=== PATIENT | female | born 1965 | race African-American/Black ===

== ENCOUNTER 2020-04-23 13:58 | Inpatient (IN) ==
[2020-04-23 15:27] LABS: Basophils % 0.3 % (0.0-0.8); Eosinophils # 0.1 10*3/uL (0.0-0.87); Eosinophils % 0.5 % (0.00-10.9); Hematocrit 37.4 VOL% (35.7-47.0); Hemoglobin 11.5 GM/DL (12.0-16.0); Lymphocytes # 2.5 10*3/uL (1.4-4.0); Lymphocytes % 26.6 % (21.3-54.2); Mean Corpuscular HGB Conc 30.7 GM/DL (32-36); Mean Corpuscular Volume 76.5 FL (87-102); Mean Platelet Volume 11.1 FL (9.6-12.0); Neutrophils % 64.6 % (38.7-73.9); Platelet Count 299 T/CUMM (130-400); Red Blood Count 4.89 MC/CUMM (3.8-5.5); Red Cell Distribution Width 16.6 % (9.3-17.3); White Blood Count 9.6 T/CUMM (4-12)
[2020-04-23 15:59] LABS: Albumin 2.7 G/DL (3.4-5.0); Bilirubin,Total 0.9 MG/DL (0.2-1.0); Calcium 9.2 MG/DL (8.5-10.1); Ferritin 240.9 ng/ml (8-252); Osmolality,Calculated 265.7 MOS/KG (273-304); Total Protein 8.2 G/DL (6.4-8.3)
[2020-04-23] MEDS ORDERED: AZITHROMYCIN 250 MG TABLET PO STA (16:25)
[2020-04-23] MEDS ORDERED: cefTRIAXone 1,000 MG in SODIUM CHLORIDE 0.9% 100 ML IV STA (16:25)
[2020-04-23 16:29] LABS: Atypical Lymphocytes 1+; Eosinophils 2 % (0-10); Lymphocytes 28 % (20-55); Polychromasia Few; Reactive Lymphocytes Few; Segmented Neutrophils 64 % (50-85); Total Cells Counted 100
[2020-04-23 16:30] LABS: Anisocytosis Slight; Microcytosis Slight; Platelet Estimate Adequate
[2020-04-23] MEDS ORDERED: ONDANSETRON 4 MG/2 ML VIAL IV PRN (17:19)
[2020-04-23] MEDS ORDERED: ACETAMINOPHEN 325 MG TABLET PO PRN (17:19)
[2020-04-23] MEDS ORDERED: GLUCAGON 1 MG VIAL IM PRN ×2 (17:19)
[2020-04-23] MEDS ORDERED: DEXTROSE 50% 25 GM/50 ML VIAL IV PRN ×2 (17:19)
[2020-04-23] MEDS ORDERED: AMITRIPTYLINE 50 MG TABLET PO SCH (21:00)
[2020-04-23] MEDS: ENOXAPARIN 40 MG/0.4 ML SYRINGE SUBCUT SCH (21:08)
[2020-04-23] MEDS: SODIUM CHLORIDE 0.9% 1,000 ML IV SCH (23:15)
[2020-04-23] MEDS: DULoxetine 30 MG CAPSULE PO SCH (23:28)
[2020-04-23] MEDS: buPROPion XL 150 MG TABLET PO SCH (23:29)
[2020-04-23] MEDS: POLYETHYLENE GLYCOL POWDER 17 GM PACK PO SCH (23:29)
[2020-04-23] MEDS: MONTELUKAST 10 MG TABLET PO SCH (23:29)
[2020-04-23] MEDS: INSULIN LISPRO 100 UNIT/ML SUBCUT SCH (23:30)
[2020-04-23] MEDS: ZINC SULFATE 220 MG CAPSULE PO SCH (23:30)
[2020-04-23] MEDS: CETIRIZINE 10 MG TABLET PO SCH (23:30)
[2020-04-24 05:22] LABS: Basophils % 0.4 % (0.0-0.8); Eosinophils # 0.1 10*3/uL (0.0-0.87); Hematocrit 34.1 VOL% (35.7-47.0); Hemoglobin 10.4 GM/DL (12.0-16.0); Immature Granulocytes % 1.7 %; Immature Granulocytes Absolute 0.16 #; Lymphocytes # 3.3 10*3/uL (1.4-4.0); Lymphocytes % 35.3 % (21.3-54.2); Mean Corpuscular HGB Conc 30.5 GM/DL (32-36); Mean Platelet Volume 10.6 FL (9.6-12.0); Monocytes % 8.1 % (1.7-12.7); Neutrophils % 53.5 % (38.7-73.9); Platelet Count 279 T/CUMM (130-400); Red Blood Count 4.37 MC/CUMM (3.8-5.5); Red Cell Distribution Width 16.3 % (9.3-17.3); White Blood Count 9.4 T/CUMM (4-12)
[2020-04-24 05:49] LABS: Calcium 8.6 MG/DL (8.5-10.1); Hypochromasia 2+; Microcytosis 1+
[2020-04-24 05:50] LABS: Ovalocytes Slight; Platelet Estimate Normal; Tear Drop Cells Slight
[2020-04-24 05:52] LABS: Ferritin 236.1 ng/ml (8-252)
[2020-04-24] MEDS: INSULIN LISPRO 100 UNIT/ML SUBCUT SCH ×3 (07:37→17:50)
[2020-04-24] MEDS ORDERED: DEXTROSE 10% 250 ML BAG IV PRN (08:00)
[2020-04-24] MEDS: buPROPion XL 150 MG TABLET PO SCH ×2 (08:52→21:00)
[2020-04-24] MEDS: POLYETHYLENE GLYCOL POWDER 17 GM PACK PO SCH (08:52)
[2020-04-24] MEDS: DULoxetine 30 MG CAPSULE PO SCH ×2 (08:52→09:00)
[2020-04-24] MEDS: AZITHROMYCIN 250 MG TABLET PO SCH (08:52)
[2020-04-24] MEDS ORDERED: PANTOPRAZOLE 40 MG TABLET PO SCH (09:00)
[2020-04-24] MEDS ORDERED: ATORVASTATIN 40 MG TABLET PO SCH ×2 (09:00→21:00)
[2020-04-24] MEDS: cefTRIAXone 1,000 MG in SYRINGE 1 EACH IV SCH (10:20)
[2020-04-24] MEDS: SODIUM CHLORIDE 0.9% 1,000 ML IV SCH ×2 (10:24→18:21)
[2020-04-24] MEDS: CETIRIZINE 10 MG TABLET PO SCH (10:29)
[2020-04-24] MEDS: ENOXAPARIN 40 MG/0.4 ML SYRINGE SUBCUT SCH ×2 (12:08→13:01)
[2020-04-24] MEDS ORDERED: ZALEPLON 5 MG CAPSULE PO SCH (21:00)
[2020-04-24] MEDS: MONTELUKAST 10 MG TABLET PO SCH (21:00)
[2020-04-25] MEDS: INSULIN LISPRO 100 UNIT/ML SUBCUT SCH ×3 (02:02→14:00)
[2020-04-25] MEDS: POLYETHYLENE GLYCOL POWDER 17 GM PACK PO SCH ×2 (02:03→09:40)
[2020-04-25 05:43] LABS: Ferritin 187.6 ng/ml (8-252)
[2020-04-25] MEDS: SODIUM CHLORIDE 0.9% 1,000 ML IV SCH (06:58)
[2020-04-25] MEDS: buPROPion XL 150 MG TABLET PO SCH (09:15)
[2020-04-25] MEDS: DULoxetine 30 MG CAPSULE PO SCH (09:15)
[2020-04-25] MEDS: ZINC SULFATE 220 MG CAPSULE PO SCH (09:15)
[2020-04-25] MEDS: AZITHROMYCIN 250 MG TABLET PO SCH (09:15)
[2020-04-25] MEDS: ENOXAPARIN 40 MG/0.4 ML SYRINGE SUBCUT SCH (09:40)
[2020-04-25] MEDS: cefTRIAXone 1,000 MG in SYRINGE 1 EACH IV SCH (09:40)
[2020-04-25 13:28] VITALS: BP 127/73
== END 2020-04-25 16:07 | disposition home health service (06) | DRG 177 ==
LOC: N.ED 13:58 → N.EDINP 17:19 → N.2W 21:03
PROVIDERS: ADMIT Hospitalist; ATTEND Hospitalist